=== PATIENT | female | born 1990 | race Caucasian/White ===

== ENCOUNTER 2023-05-14 03:06 | Emergency (ER) | payer OTHER ==
[~2023-05-14] VITALS: Ht 152.4 cm; Wt 40.4 kg
[2023-05-14 03:07] VITALS: BP 114/86; PULSE 125; RESP 16; TEMP 98.7; O2SAT 100
[2023-05-14] MEDS ORDERED: FLUORESCEIN OPTH STRIP 1 MG OP ONE (03:40)
[2023-05-14] MEDS ORDERED: TETRACAINE HCL/PF 0.5% OPTH 4 ML BTL OP ONE (03:40)
[2023-05-14] MEDS ORDERED: LIDOCAINE MPF 1% 10 MG/ML VIAL INJ ONE (03:45)
[2023-05-14] MEDS ORDERED: POLY10SO OP (04:13)
[2023-05-14 04:45] VITALS: BP 114/86; PULSE 125; RESP 16; TEMP 98.7; O2SAT 100
== END 2023-05-14 04:45 | disposition home or self-care (01) ==
LOC: MED 03:06
DX: S01.511A Laceration without foreign body of lip, initial encounter (principal); S05.32XA Ocular laceration without prolapse or loss of intraocular tissue, left eye, initial encounter; Y04.8XXA Assault by other bodily force, initial encounter; Y93.89 Activity, other specified; Y92.89 Other specified places as the place of occurrence of the external cause; Y99.8 Other external cause status
CPT/HCPCS: 12011; 90471; 90715; 99283; J2001